=== PATIENT | male | born 1990 | race Caucasian/White ===

== ENCOUNTER 2024-04-06 13:56 | Emergency (ER) | payer MEDICARE, MEDICAID ==
[~2024-04-06] VITALS: Ht 172.7 cm; Wt 70.0 kg
[2024-04-06 14:03] VITALS: O2SAT 95
[2024-04-06] MEDS: SODIUM CHLORIDE 0.9% 1,000 ML IV ONE (14:48)
[2024-04-06] MEDS: LEVETIRACETAM 500MG PREMIX 100 ML IV ONE (14:48)
[2024-04-06 14:57] LABS: BASOPHILS % 0.7 % (0.0-2.0); EOSINOPHILS % 0.3 % (0.0-5.0); HEMATOCRIT. 43.8 % (42.0-52.0); HEMOGLOBIN. 14.9 g/dL (14.0-18.0); LYMPHOCYTES % 15.7 % (20.0-50.0); MEAN CORPUSCULAR HEMOGLOBIN 31.2 pg (28.0-32.0); MEAN CORPUSCULAR VOLUME 91.8 fL (80.0-94.0); MEAN PLATELET VOLUME 7.9 fl (7.4-10.4); MONOCYTES % 8.6 % (2.0-8.0); NEUTROPHILS % 74.7 % (40.0-76.0); PLATELET 238 x1000/uL (130-400); RED BLOOD CELL COUNT 4.77 mill/uL (4.7-6.1); RED CELL DISTRIBUTION WIDTH 13.9 % (11.6-14.6); WHITE BLOOD COUNT 5.7 x1000/uL (4.5-11.0)
[2024-04-06 15:03] LABS: CHLORIDE 104 mEq/L (98-107); POTASSIUM 3.7 mEq/L (3.5-5.1); SODIUM 138 mEq/L (136-145)
[2024-04-06 15:04] LABS: CALCIUM 9.8 mg/dL (8.7-10.4); CARBON DIOXIDE 25 mEq/L (21-32)
[2024-04-06 15:09] LABS: CREATININE 0.9 mg/dL (0.6-1.3); GLUCOSE 112 mg/dL (70-105); UREA NITROGEN BLOOD 9 mg/dL (9-23)
[2024-04-06 15:10] LABS: TROPONIN I HIGH SENSITIVITY 5 ng/L (3.0-53)
[2024-04-06 15:11] LABS: ALANINE AMINOTRANSFERASE 10 IU/L (10-49); ALBUMIN 4.8 g/dL (3.2-4.8); ASPARTATE AMINOTRANSFERASE 19 IU/L (<34); BILIRUBIN TOTAL 0.3 mg/dL (0.1-1.0)
[2024-04-06 15:12] LABS: PROTEIN TOTAL 8.4 g/dL (6.0-8.3)
[2024-04-06 15:23] LABS: BILIRUBIN DIRECT < 0.1 mg/dL (<=3.0); ETHANOL BLOOD < 10 mg/dL (<10)
[2024-04-06 17:54] LABS: *AMPHETAMINES SCREEN URINE NEGATIVE (NEGATIVE); *BARBITURATES SCREEN URINE NEGATIVE (NEGATIVE); *BENZODIAZEPINES SCREEN URINE PRESUMPTIVE POSITIVE (NEGATIVE); *COCAINE SCREEN URINE NEGATIVE (NEGATIVE); CANNABINOID URINE SCREEN NEGATIVE (NEGATIVE); ECSTASY MDMA SCREEN URINE NEGATIVE (NEGATIVE); METHADONE URINE SCREEN NEGATIVE (NEGATIVE); OPIATES URINE SCREEN NEGATIVE (NEGATIVE); PHENCYCLIDINE URINE SCREEN NEGATIVE (NEGATIVE)
[2024-04-06 20:40] VITALS: BP 122/80; PULSE 98; RESP 16; TEMP 36.66960; O2SAT 98
== END 2024-04-06 21:00 | disposition home or self-care (01) ==
LOC: ER 14:11
DX: G40.909 Epilepsy, unspecified, not intractable, without status epilepticus (principal); R00.0 Tachycardia, unspecified; F15.10 Other stimulant abuse, uncomplicated; F20.9 Schizophrenia, unspecified
CPT/HCPCS: 80076; 80305; 80048; 80320; 85025; 84484; 36415; 71045; 70450; 93005; 96365; 99285; J1953; J7030; G0480

== ENCOUNTER 2024-05-30 14:53 | Emergency (ER) | payer MEDICARE, MEDICAID ==
[~2024-05-30] VITALS: Ht 167.6 cm; Wt 73.0 kg
[2024-05-30 15:02] VITALS: O2SAT 99
[2024-05-30 16:53] VITALS: BP 115/77; PULSE 79; RESP 18; TEMP 36.61404; O2SAT 99
== END 2024-05-30 17:22 | disposition home or self-care (01) ==
LOC: ER 14:53
DX: G40.909 Epilepsy, unspecified, not intractable, without status epilepticus (principal); F20.9 Schizophrenia, unspecified; R07.9 Chest pain, unspecified; F15.90 Other stimulant use, unspecified, uncomplicated
CPT/HCPCS: 93005; 99284

== ENCOUNTER 2024-12-19 16:03 | Inpatient (IN) | payer MEDICARE, MEDICAID ==
[~2024-12-19] VITALS: Ht 175.3 cm; Wt 60.3 kg
[2024-12-19] MEDS: LEVETIRACETAM 1000MG PREMIX 100 ML IV ONE (16:33)
[2024-12-19 16:47] LABS: BASOPHILS % 0.7 % (0.0-2.0); EOSINOPHILS % 1.2 % (0.0-5.0); HEMATOCRIT. 40.1 % (42.0-52.0); HEMOGLOBIN. 13.7 g/dL (14.0-18.0); LYMPHOCYTES % 18.7 % (20.0-50.0); MEAN PLATELET VOLUME 7.7 fl (7.4-10.4); MONOCYTES % 5.1 % (2.0-8.0); NEUTROPHILS % 74.3 % (40.0-76.0); PLATELET 221 x1000/uL (130-400); RED BLOOD CELL COUNT 4.31 mill/uL (4.7-6.1); RED CELL DISTRIBUTION WIDTH 13.4 % (11.6-14.6)
[2024-12-19] MEDS: SODIUM CHLORIDE 0.9% 1,000 ML IV ONE (16:47)
[2024-12-19 16:58] LABS: CREATININE 1.2 mg/dL (0.6-1.3)
[2024-12-19 16:59] LABS: ETHANOL BLOOD < 10 mg/dL (<10); UREA NITROGEN BLOOD 15 mg/dL (9-23)
[2024-12-19 21:16] VITALS: BP 89/62; PULSE 62; RESP 15; TEMP 36.6; O2SAT 98
[2024-12-19] MEDS ORDERED: LORAZEPAM 2MG/ML UD SYRINGE IV PRN (22:00)
[2024-12-19] MEDS ORDERED: ONDANSETRON HCL 4MG/2ML INJ IV PRN (22:00)
[2024-12-19 22:07] VITALS: BP 89/62; PULSE 62; RESP 15; TEMP 36.6
[2024-12-20] VITALS: BP 83/51; PULSE 68; RESP 18; TEMP 28.3; O2SAT 98
[2024-12-20 00:30] VITALS: BP 100/67
[2024-12-20 04:00] VITALS: BP 103/77; PULSE 97; RESP 18; TEMP 36; O2SAT 98
[2024-12-20 08:00] VITALS: BP 117/65; PULSE 83; RESP 18; TEMP 36.5; O2SAT 98
[2024-12-20] MEDS ORDERED: LEVETIRACETAM 1,000MG in NACL 100ML PREMIX IV SCH (09:00)
[2024-12-20] MEDS: LEVETIRACETAM 1000MG PREMIX 100 ML IV SCH (10:00)
[2024-12-20 12:00] VITALS: BP 102/70; PULSE 82; RESP 16; TEMP 37; O2SAT 99
[2024-12-20 16:00] VITALS: BP 105/67; PULSE 88; RESP 18; TEMP 36.7; O2SAT 96
[2024-12-21] VITALS: BP 123/58; PULSE 79; RESP 17; TEMP 36; O2SAT 97
[2024-12-21 04:00] VITALS: BP 99/63; PULSE 67; RESP 18; TEMP 36.4; O2SAT 97
[2024-12-21 12:00] VITALS: BP 111/65; PULSE 69; RESP 18; TEMP 36.8; O2SAT 96
[2024-12-21 16:00] VITALS: BP 99/67; PULSE 66; RESP 18; TEMP 36.6; O2SAT 98
[2024-12-21 20:00] VITALS: BP 123/95; PULSE 85; RESP 17; TEMP 36.3; O2SAT 98
[2024-12-22] VITALS: BP 112/77; PULSE 59; RESP 18; TEMP 36.4; O2SAT 97
[2024-12-22 04:00] VITALS: BP 105/72; PULSE 60; RESP 18; TEMP 36.3; O2SAT 99
[2024-12-22 08:00] VITALS: BP 94/64; PULSE 72; TEMP 36.5
[2024-12-22] MEDS ORDERED: FLUO-413 MT (10:02)
[2024-12-22] MEDS ORDERED: PRAV20TA57 MT (10:02)
[2024-12-22] MEDS ORDERED: LEVE750T10 MT (10:02)
[2024-12-22] MEDS ORDERED: TOPI-95 MT (10:02)
[2024-12-22] MEDS ORDERED: OLAN20TA79 MT (10:02)
[2024-12-22 12:00] VITALS: BP 95/70; PULSE 71; RESP 12; TEMP 36.1; O2SAT 98
[2024-12-22 16:00] VITALS: BP 97/72; PULSE 72; RESP 12; TEMP 36.3; O2SAT 97
[2024-12-22 20:00] VITALS: BP 117/91; PULSE 85; RESP 18; TEMP 35.8; O2SAT 98
[2024-12-23 04:00] VITALS: BP 128/71; PULSE 91; RESP 17; TEMP 36.6; O2SAT 97
[2024-12-23 08:00] VITALS: BP 100/55; PULSE 94; RESP 18; TEMP 36.4; O2SAT 97
[2024-12-23 12:00] VITALS: BP 101/60; PULSE 59; RESP 16; TEMP 36.4; O2SAT 100
[2024-12-23 13:37] VITALS: BP 101/60; PULSE 59; TEMP 97.6; O2SAT 100
[2024-12-23 16:00] VITALS: BP 102/66; PULSE 66; RESP 16; TEMP 37; O2SAT 98
== END 2024-12-23 17:48 | disposition home or self-care (01) | DRG 101 ==
LOC: ER 16:03 → EDBEDREQTM 20:34 → EDBEDREQ 20:34 → ENRESERV 20:45 → 5WST 21:20 → 7EST 12-22 07:00
PROVIDERS: ADMIT Internal Medicine; ATTEND Internal Medicine
DX: G40.909 Epilepsy, unspecified, not intractable, without status epilepticus (principal); F20.9 Schizophrenia, unspecified; F15.90 Other stimulant use, unspecified, uncomplicated; F17.210 Nicotine dependence, cigarettes, uncomplicated; Z79.899 Other long term (current) drug therapy
CPT/HCPCS: 36415; 80048; 80320; 85025; 99285; J1953; J2405; J7030; G0480